=== PATIENT | female | born 1980 | race Caucasian/White ===

== ENCOUNTER 2016-09-21 18:20 | Emergency (ER) | payer OTHER ==
[~2016-09-21] VITALS: Ht 152.4 cm; Wt 77.3 kg
[~2016-09-21 18:20] MED LIST: NAPR500T PO
[2016-09-21 18:34] VITALS: BP 118/88; PULSE 99; RESP 15; O2SAT 97
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
[2016-09-21] MEDS ORDERED: oxyCODONE-Acetamin 5-325 mg Tablet PO ONE ×2 (19:35→21:10)
[2016-09-21] MEDS ORDERED: _oxyCODONE/APAP 5-325 mg Tablet PO PRN (22:35)
[2016-09-22 01:28] VITALS: BP 125/74; PULSE 88; RESP 16; O2SAT 99
== END 2016-09-22 01:00 | disposition home or self-care (01) ==
LOC: SED 18:20
DX: T76.21XA Adult sexual abuse, suspected, initial encounter (principal); Y04.8XXA Assault by other bodily force, initial encounter; Y93.84 Activity, sleeping; Y92.009 Unspecified place in unspecified non-institutional (private) residence as the place of occurrence of the external cause; Y99.8 Other external cause status; G89.29 Other chronic pain; Z87.891 Personal history of nicotine dependence; Z88.8 Allergy status to other drugs, medicaments and biological substances

== ENCOUNTER 2017-01-20 14:29 | Emergency (ER) | payer OTHER ==
[~2017-01-20] VITALS: Ht 152.4 cm; Wt 79.5 kg
[2017-01-20 14:37] VITALS: BP 116/80; PULSE 78; RESP 16; O2SAT 98
--- NOTE | 2017-01-20 15:14 | ED.REPORT ---
HPI-Extremity Problem Upper Date of Service January 20, 2017 ED Provider: Satinder Hernandez PA-C Tammie is a 37-year-old female with chief complaint of right hand pain. She states the pain began when she struck her hand against a metal railing of a staircase. This caused her to fall down the staircase, striking her head. She is unsure if she lost consciousness. Reports repeated vomiting today, denies headache. Denies use of blood thinners, bleeding disorders, seizure activity, neck pain. Admits pain in her hand, reduced range of motion in wrist and MCP joints. Nursing Notes Stated Complaint: RIGHT HAND Chief Complaint: Extremity Trauma Nursing Notes Reviewed: Yes Allergies: Coded Allergies: tramadol (Verified Adverse Reaction, Unknown, Hallucinations, 09/21/16) Scheduled PRN Naproxen (Naprosyn) 500 Mg Tablet 500 MG PO BID PRN PRN For Pain General Time Seen by MD: 14:44 Chief Complaint Hand injury right Past Medical History Past Medical History Notes: Chronic pain meds by Dr. Cobos Past Medical History Healthy Reports: Asthma Past Surgical History right hand, left shoulder Reports: Smoking History Current Every Day Smoker Social History Alcohol Use: "Social" Drug Use: Denies drug use Other Social History: Lives with children Occupation single, work at [employer] and [email or web address] Ambulatory Status Independent Review of Systems Negative unless stated otherwise in history of present illness Physical Exam General: Well appearing, well developed, well nourished, no acute distress. Right hand: Diffusely swollen over the metacarpal bones, negative bruising, redness. Radial pulse 2+. Brisk capillary refill and sensation intact in distal phalanges. Reduced active range of motion at MCP joints. Diffusely tender over her wrist and carpal bones including MCP joints. Phalanges nontender and normal to inspection. Neurologically Intact. Head: Atraumatic, normocephalic. Neck: Nontender, normal to inspection, full range of motion. Eyes: No scleral icterus or injection. No discharge. Vision grossly intact. ENT: Voice clear, hearing grossly intact. Respiratory: Regular rate and rhythm. Breath sounds present, clear to auscultation and equal bilaterally. No respiratory distress. No increased work of breathing, speaks in complete sentences. Cardiovascular: Regular rate and rhythm, without murmur, gallop or rub. No pedal edema. Gastrointestinal: Abdomen flat and non-tender without guarding or rebound. Bowel sounds normoactive. Skin: Warm and dry. Neurological: Grossly nonfocal. Psychological: Alert and oriented. Speech appropriate, linear and logical. Behavior appropriate. Initial Vital Signs Vital Signs (First) Date Time Temp Pulse Resp B/P Pulse Ox O2 Delivery O2 Flow Rate FiO2 01/20/17 14:37 36.8 78 16 116/80 98 Room Air Initial VS: Vital signs normal Interpretation & Diagnostics Interpretation & Diagnostics: PROCEDURE: CT BRAIN WITHOUT CONTRAST ([id number]) INDICATIONS: fall, vomiting IMPRESSION: 1. No acute intracranial abnormality. 2. Sinus disease. Read by radiologist X-Ray Interpretation Xray Interpretation: PROCEDURE: X-RAY RIGHT HAND, MINIMUM THREE VIEWS ([id number]) INDICATIONS: right hand pain. IMPRESSION: No acute fracture. No osseous lesion. If clinical suspicion and/or symptoms persist, further assessment with repeat plainfilms, or advanced imaging (e.g., CT, MRI, or bone scan) may be helpful for further assessment. Interpretation / Wet Read by: Interpret - Radiologist, Interp - P Re-Eval/Medical Decision Med Decision/Clinical Course Otherwise only 37-year-old female presents with chief complaint of right hand pain which occurred after striking her hand against a metal railing of the staircase. She reports falling on a staircase and striking her head as well as several episodes of vomiting this morning. After discussion with Dr. Nur, x-ray of the right hand is ordered as well as CT of the head out of concern for repeat of vomiting. X-ray of the hand is negative for fracture, CT head is negative for intracranial bleeding, fracture. On physical examination the right hand is notably swollen with diffuse tenderness including over the anatomical snuffbox. Neurovascularly intact. Because of snuffbox tenderness the hand is placed in a thumb spica splint and advised orthopedic follow-up in one week. Advise [id number] analgesic, provided orthopedic follow-up referral, emergency return precautions. Patient verbalizes understanding of and consent to the plan. Discharge & Departure Impression: Primary Impression: Contusion of right hand Encounter type: initial encounter Qualified Code: S60.221A - Contusion of right hand, initial encounter Disposition: Home Discharge Condition All VS Reviewed: Yes Condition: Stable Patient Instructions: Contusions in Adults (ED) Additional Instructions: Evaluation in the emergency department for right hand pain includes his tree, physical examination, x-rays and a CT scan. Reassuring that she does not have a fracture in her hand or bleeding in her brain which might of been causing your vomiting. The pain in her hand is a contusion, which should resolve on its own. However, the pain of the basilar thumb raises some concern for a fracture that did not show up on x-ray. We will treat this in the most conservative way, by placing you in a splint and having you follow up with orthopedic surgery. Wear the splint at all times until you are cleared by the orthopedic surgeon. Keep the affected limb elevated as much as possible. Ice effected area 2 or 3 times over the next 24 hours. This will help reduce swelling and pain. We have placed a hand in an Will wrap to further reduce swelling. Keep the hand wrapped most of the time for the next several days until the swelling is reduced. Feel free to remove the wrap for bathing or adjust for comfort. The pain is best treated with no more than 800 mg of ibuprofen (Advil, Motrin) every 6 hours, or 1000 mg of acetaminophen (Tylenol) every 6 hours. These drugs can be taken at the same time for more severe pain. I will give you a referral for orthopedic follow-up. Please contact them tomorrow to arrange follow-up in about a week. Return to emergency department for any new or worsening symptoms including increasing pain or the development of a cold/numb hand. Referrals: Ottoniel Helm MD EDSupervising Provider for APC: Fredy Nur MD copies to: Ottoniel Helm MD; Juan Cobos MD, Seth PA-C January 20, 2017 15:14
--- NOTE | 2017-01-20 16:07 | DRSVH ---
PROCEDURE: CT BRAIN WITHOUT CONTRAST ([id number]) INDICATIONS: fall, vomiting TECHNIQUE: Noncontrast 4.5 mm thick angled axial sections acquired from the foramen magnum to the vertex, with c oronal reformats. COMPARISON: [facility], CT, BRAIN W/O CONTRAST, 07/30/2013, 10:08. FINDINGS: Image quality: Excellent. CSF spaces: Basal cisterns are patent. No extra-axial fluid collections. Ventricles are normal in size and shape. Brain: No midline shift. No intracranial masses or hemorrhage. Cast-white matter interface is norm al. Skull and face: Calvarium and visualized facial bones are intact, without suspicious lesions. Sinuses: Moderate bilateral ethmoid and sphenoid sinus mucosal thickening. Visualized sinuses and ma stoids are otherwise clear. IMPRESSION: 1. No acute intracranial abnormality. 2. Sinus disease. Dictated by: Luanne Quiles M.D. on 01/20/2017 at 16:05 Approved by: Luanne Quiles M.D. on 01/20/2017 at 16:06
--- NOTE | 2017-01-20 16:42 | DRSVH ---
PROCEDURE: X-RAY RIGHT HAND, MINIMUM THREE VIEWS ([id number]) INDICATIONS: right hand pain. TECHNIQUE: 3 views of the hand(s) acquired. COMPARISON: None. FINDINGS: Bones: No fractures or dislocations. Carpal bones are normally aligned. No suspicious bony lesions . Soft tissues: No suspicious soft tissue calcifications. IMPRESSION: No acute fracture. No osseous lesion. If clinical suspicion and/or symptoms persist, fur ther assessment with repeat plainfilms, or advanced imaging (e.g., CT, MRI, or bone scan) may be help ful for further assessment. Dictated by: Luanne Quiles M.D. on 01/20/2017 at 16:40 Approved by: Luanne Quiles M.D. on 01/20/2017 at 16:40
== END 2017-01-20 17:19 | disposition home or self-care (01) ==
LOC: SED 14:29
DX: S60.221A Contusion of right hand, initial encounter (principal); W10.8XXA Fall (on) (from) other stairs and steps, initial encounter; Y92.009 Unspecified place in unspecified non-institutional (private) residence as the place of occurrence of the external cause; Y93.89 Activity, other specified; Y99.8 Other external cause status; J45.909 Unspecified asthma, uncomplicated; F17.200 Nicotine dependence, unspecified, uncomplicated; Z88.5 Allergy status to narcotic agent